=== PATIENT | male | born 1990 | race Caucasian/White ===

== ENCOUNTER → 2025-01-30 14:29 | Outpatient (REF) | payer BC, SELFPAY | LOC: DHSLP 14:29 | PROVIDERS: ATTENDING PHYSICIAN Internal Medicine; FAMILY PHYSICIAN Nurse Practitioner Family | DX: G47.19 Other hypersomnia (principal); G47.8 Other sleep disorders; R06.83 Snoring | CPT/HCPCS: 95800 ==